=== PATIENT | male | born 1985 | race Caucasian/White ===

== ENCOUNTER 2017-02-20 14:03 | Inpatient (IN) ==
[2017-02-20] MEDS ORDERED: Ondansetron 4 MG/2 ML VIAL IVP PRN (14:26)
[2017-02-20] MEDS ORDERED: 0.9 % Sodium Chloride 1,000 ML IVC SCH (14:30)
[2017-02-20] MEDS ORDERED: 0.9 % Sodium Chloride 1,000 ML IVC ONE ×3 (14:40→15:39)
[2017-02-20] MEDS ORDERED: *HR* Promethazine 25 MG/ML VIAL IVP ONE (14:50)
[2017-02-20 15:09] LABS: Hematocrit 48.5 % (37.5-50.1); Hemoglobin 16.2 g/dL (12.9-16.9); Immature Platelets 1.5 % (1.1-6.1); Mean Corpuscular HGB Conc 33.4 g/dL (31.6-35.5); Mean Corpuscular Hemoglobin 30.5 pg (28.0-33.3); Mean Corpuscular Volume 91.3 fL (83.0-100.0); Mean Platelet Volume 8.3 fL (9.4-12.4); Red Blood Count 5.31 M/mcL (4.19-5.50); Red Cell Distribution Width 12.9 % (11.5-14.5)
[2017-02-20] MEDS ORDERED: Pantoprazole 80 MG in Water for inj. (sterile) 10 ML IVP ONE ×2 (15:38→15:45)
[2017-02-20 15:40] LABS: Alanine Aminotransferase 28 Units/L (0-55); Albumin 4.4 g/dL (3.5-5.0); Albumin/Globulin Ratio 1.2 (1.1-2.2); Alkaline Phosphatase 86 Units/L (38-126); Aspartate Amino Transferase 24 Units/L (5-34); BUN/Creatinine Ratio 15 (6-26); Bilirubin,Total 0.4 mg/dL (0.2-1.2); Blood Urea Nitrogen 17 mg/dL (8-26); Calcium 9.4 mg/dL (8.6-10.8); Carbon Dioxide 23 mEq/L (19-29); Chloride 109 mEq/L (98-109); Globulin 3.6 g/dL (2.4-3.5); Glucose 65 mg/dL (70-99); Osmolality,Calculated 298 (280-300); Potassium 3.9 mEq/L (3.5-4.5); Sodium 144 mEq/L (136-145); eGFR For African Americans > 60 (> 60); eGFR For Non-African Americans > 60 (> 60)
--- NOTE | 2017-02-20 15:41 | Emergency Department Note ---
Disposition Clinical Impression: Prostatitis Qualifiers: Prostatitis type: acute Qualified Code(s): N41.0 - Acute prostatitis Sepsis Qualifiers: Sepsis type: sepsis due to unspecified organism Qualified Code(s): A41.9 - Sepsis, unspecified organism Disposition: Admitted As Inpatient Condition: Fair Time of Disposition: 18:43 Nausea/Vomiting/Diarrhea HPI - General Chief complaint: ED Nausea/Vomiting/Diarrhea Stated complaint: vomiting Time Seen by Provider: 02/20/17 14:10 Source: patient Limitations: no limitations Nursing Notes Reviewed: Yes Vital Signs Reviewed: Yes - History of Present Illness HPI Narrative: 32-year-old male presents with nausea and vomiting past several days. Patient was diagnosed with prostatitis and was placed on ciprofloxacin, omeprazole 5 days ago. Patient states he has not filled his medications yet and his nausea vomiting has been getting worse. Patient was vomiting into a bag was walking to the room. Patient states he has had abdominal pain and back pain. - Related Data Home Medications Medication Instructions Recorded Confirmed No Known Home Drugs 02/20/17 02/20/17 Allergies Allergy/AdvReac Type Severity Reaction Status Date / Time codeine Allergy Itching Verified 02/20/17 17:23 All systems ED: reviewed and negative except as stated. Review of Systems: As Per HPI Past Medical History - Past Medical History Attestation: Yes The following information was validated with the patient. Source: patient Medical history: Reports: no medical history, non-contributory Surgical history: Reports: non-contributory Psychiatric history: Reports: no psych history - Social History Smoking Status: Current some day smoker Smokeless Tobacco Status: Yes Alcohol use: Reports: rarely Drug use: Reports: marijuana Physical Exam Vital Signs Temperature 98.9 F 02/20/17 14:07 Pulse Rate 91 02/20/17 14:07 Respiratory Rate 16 02/20/17 14:07 Blood Pressure 155/81 02/20/17 14:07 O2 Sat by Pulse Oximetry 95 02/20/17 14:07 Temperature 98.9 F 02/20/17 14:07 Pulse Rate 103 02/20/17 15:36 Respiratory Rate 18 02/20/17 15:36 Blood Pressure 154/94 02/20/17 15:36 O2 Sat by Pulse Oximetry 98 02/20/17 15:36 Oxygen Delivery Oxygen Delivery Room Air 32-year-old male who is alert and oriented 3 and in acute distress secondary to his nausea and vomiting. Patient's currently afebrile and nontoxic appearing. Patient has a GCS of 15. Patient has hematemesis in his bucket - General Limitations: no limitations General appearance: anxious - Head Head exam: atraumatic, normocephalic, normal inspection - Eye Eye exam: Present: normal appearance, PERRL, EOMI - ENT ENT exam: normal exam, normal oropharynx, mucous membranes dry - Neck Neck exam: Present: normal inspection, full ROM, trachea midline - Chest Chest inspection: Present: normal inspection, symmetric chest wall rise. Absent : tenderness - Respiratory Respiratory exam: Present: normal lung sounds bilaterally. Absent: respiratory distress, wheezes - Cardiovascular Cardiovascular exam: Present: regular rate, normal rhythm, normal heart sounds - Abdominal Exam Abdominal exam: Present: soft, Non-Tender. Absent: tenderness, distention, guarding, rebound, rigidity - Extremities Exam Extremities exam: Present: normal inspection, full ROM, normal capillary refill , pedal edema (Bilateral lower leg pitting edema 2+). Absent: tenderness - Back Exam Back exam: Present: normal inspection, full ROM, CVA tenderness (R). Absent: tenderness, CVA tenderness (L) - Neurological Exam Neurological exam: Present: alert, oriented X3 - Skin Skin exam: Present: warm, dry, intact, normal color Course - Consultations Consultation #1: Dr. Bhakta the hospitalist as except the patient for admission at 1750 hrs. Time: 17:51 Vital Signs Temperature 98.9 F 02/20/17 14:07 Pulse Rate 91 02/20/17 14:07 Respiratory Rate 16 02/20/17 14:07 Blood Pressure 155/81 02/20/17 14:07 O2 Sat by Pulse Oximetry 95 02/20/17 14:07 Temperature 99 F 02/20/17 18:18 Pulse Rate 103 02/20/17 17:19 Respiratory Rate 18 02/20/17 18:18 Blood Pressure 108/59 02/20/17 18:18 O2 Sat by Pulse Oximetry 95 02/20/17 17:19 Oxygen Delivery Oxygen Delivery Room Air Nausea/Vomiting/Diarrhea - [facility] Narrative Medical decision making narrative: Patient presents today with previous diagnosis of prostatitis and noncompliant on his home medications. Patient has worsening nausea and vomiting complaint. Patient also has right CVA tenderness. Patient may have pyelonephritis. Patient is nontoxic appearing and is afebrile. Currently not meeting any SIRS criteria. Labs ordered. Patient's WBC shows a white count mildly elevated warranting further investigation. Lactic acid ordered cultures ordered CT abdomen and pelvis ordered. Patient was started on antibiotics IV Cipro. As lactic acidemia 5.1 leukocytosis 25.8 for sepsis secondary to worsening prostatitis. Patient accepts decision for admission Dr. Bhakta the hospitalist has accepted the patient for admission at 1750 hrs. - Lab Data Lab results reviewed: Yes I reviewed the patient's lab results. Lab results narrative: Short CBC 02/20/17 Range/Units 15:03 WBC 25.8 H (4.3-11.1) K/mcL Hgb 16.2 (12.9-16.9) g/dL Hct 48.5 (37.5-50.1) % Plt Count 355 (140-400) K/mcL BMP 02/20/17 Range/Units 15:03 Sodium 144 (136-145) mEq/L Potassium 3.9 (3.5-4.5) mEq/L Chloride 109 (98-109) mEq/L Carbon Dioxide 23 (19-29) mEq/L BUN 17 (8-26) mg/dL Creatinine 1.14 (0.72-1.25) mg/dL Glucose 65 L (70-99) mg/dL Calcium 9.4 (8.6-10.8) mg/dL Liver Function 02/20/17 Range/Units 15:03 Total Bilirubin 0.4 (0.2-1.2) mg/dL AST 24 (5-34) Units/L ALT 28 (0-55) Units/L Alkaline Phosphatase 86 (38-126) Units/L Albumin 4.4 (3.5-5.0) g/dL Urine 02/20/17 Range/Units 16:45 Urine Color Yellow (Yellow) Urine Clarity Clear (Clear) Urine pH 6.0 (5.0-8.0) pH Units Ur Specific [place] > 1.030 H (1.010-1.025) Urine Protein 30 H (Neg-Trace) mg/dL Urine Glucose (UA) Normal (Normal) mg/dL Result diagrams: 02/20/17 15:03 02/20/17 15:03 Lab Results 02/20/17 02/20/17 02/20/17 Range/Units 15:03 15:03 16:07 WBC 25.8 H (4.3-11.1) K/mcL RBC 5.31 (4.19-5.50) M/mcL Hgb 16.2 (12.9-16.9) g/dL Hct 48.5 (37.5-50.1) % MCV 91.3 (83.0-100.0) fL MCH 30.5 (28.0-33.3) pg MCHC 33.4 (31.6-35.5) g/dL RDW 12.9 (11.5-14.5) % Plt Count 355 (140-400) K/mcL MPV 8.3 L (9.4-12.4) fL Immature Plt Fraction 1.5 (1.1-6.1) % Sodium 144 (136-145) mEq/L Potassium 3.9 (3.5-4.5) mEq/L Chloride 109 (98-109) mEq/L Carbon Dioxide 23 (19-29) mEq/L BUN 17 (8-26) mg/dL Creatinine 1.14 (0.72-1.25) mg/dL Est GFR ( Amer) > 60 (> 60) Est GFR (Non-Af Amer) > 60 (> 60) BUN/Creatinine Ratio 15 (6-26) Glucose 65 L (70-99) mg/dL Calculated Osmolality 298 (280-300) Lactic Acid 5.1 H* (0.5-2.2) mmol/L Calcium 9.4 (8.6-10.8) mg/dL Total Bilirubin 0.4 (0.2-1.2) mg/dL AST 24 (5-34) Units/L ALT 28 (0-55) Units/L Alkaline Phosphatase 86 (38-126) Units/L Serum Total Protein 8.0 (6.0-8.3) g/dL Albumin 4.4 (3.5-5.0) g/dL Globulin 3.6 H (2.4-3.5) g/dL Albumin/Globulin Ratio 1.2 (1.1-2.2) Lipase (8-78) Units/L Urine Color (Yellow) Urine Clarity (Clear) Urine pH (5.0-8.0) pH Units Ur Specific [place] (1.010-1.025) Urine Protein (Neg-Trace) mg/dL Urine Glucose (UA) (Normal) mg/dL Urine Ketones (Negative) mg/dL Urine Blood (Negative) Urine Nitrite (Negative) Urine Bilirubin (Negative) Urine Urobilinogen (Normal) mg/dL Ur Leukocyte Esterase (Negative) Urine Microscopic RBC (0-3) per hpf Urine Microscopic WBC (0-3) per hpf Ur Squamous Epith Cells (None-Few) per lpf Urine Bacteria (None-Few) per hpf Hyaline Casts (None-Few) per lpf Ur Culture Indicated? (NO) 02/20/17 02/20/17 Range/Units 16:07 16:45 WBC (4.3-11.1) K/mcL RBC (4.19-5.50) M/mcL Hgb (12.9-16.9) g/dL Hct (37.5-50.1) % MCV (83.0-100.0) fL MCH (28.0-33.3) pg MCHC (31.6-35.5) g/dL RDW (11.5-14.5) % Plt Count (140-400) K/mcL MPV (9.4-12.4) fL Immature Plt Fraction (1.1-6.1) % Sodium (136-145) mEq/L Potassium (3.5-4.5) mEq/L Chloride (98-109) mEq/L Carbon Dioxide (19-29) mEq/L BUN (8-26) mg/dL Creatinine (0.72-1.25) mg/dL Est GFR ( Amer) (> 60) Est GFR (Non-Af Amer) (> 60) BUN/Creatinine Ratio (6-26) Glucose (70-99) mg/dL Calculated Osmolality (280-300) Lactic Acid (0.5-2.2) mmol/L Calcium (8.6-10.8) mg/dL Total Bilirubin (0.2-1.2) mg/dL AST (5-34) Units/L ALT (0-55) Units/L Alkaline Phosphatase (38-126) Units/L Serum Total Protein (6.0-8.3) g/dL Albumin (3.5-5.0) g/dL Globulin (2.4-3.5) g/dL Albumin/Globulin Ratio (1.1-2.2) Lipase 21 (8-78) Units/L Urine Color Yellow (Yellow) Urine Clarity Clear (Clear) Urine pH 6.0 (5.0-8.0) pH Units Ur Specific [place] > 1.030 H (1.010-1.025) Urine Protein 30 H (Neg-Trace) mg/dL Urine Glucose (UA) Normal (Normal) mg/dL Urine Ketones 40 H (Negative) mg/dL Urine Blood Negative (Negative) Urine Nitrite Negative (Negative) Urine Bilirubin Negative (Negative) Urine Urobilinogen Normal (Normal) mg/dL Ur Leukocyte Esterase Negative (Negative) Urine Microscopic RBC 0-3 (0-3) per hpf Urine Microscopic WBC 0-3 (0-3) per hpf Ur Squamous Epith Cells Few (None-Few) per lpf Urine Bacteria None Seen (None-Few) per hpf Hyaline Casts None Seen (None-Few) per lpf Ur Culture Indicated? NO (NO) - Radiology Data Radiology results reviewed: Yes I reviewed the patient's radiology results. Chest/Abdomen X-ray 02/20/17 14:52 IMPRESSION: 1. Nonobstructive bowel gas pattern with a minimal to mild stool volume. 2. No acute cardiopulmonary process. D/ / Glen Carmona MD / Glen Carmona MD Interpreting Provider: Glen Carmona MD Abdomen/Pelvis CT 02/20/17 15:42 IMPRESSION: 1. No acute abnormality in the abdomen or pelvis. 2. Diffuse hepatic steatosis. D/ / Guille Armendariz MD / Guille Armendariz MD Interpreting Provider: Guille Armendariz MD Critical Care Time Critical Care Time: Yes Total Critical Care Time: 35 Attestation: Critical care time for this patient was 35 minutes. Attestation Statement - Attestation Attestation: Patient was seen with resident physician. I reviewed the history, physical, assessment and plan, and agree with the findings. I also personally evaluated this patient and had [id number] time with this patient. 32-year-old female was apparently diagnosed with prostatitis yesterday. He was unable to get his medications filled. He returns today with intractable nausea and vomiting. He also has diffuse abdominal discomfort. Denies fevers or chills. On exam vital signs demonstrate that he is afebrile with a slightly elevated heart rate. ENT is unremarkable. Heart regular rhythm and rate. Lungs clear. Abdomen soft and diffusely tender especially in the mid to lower abdomen. There is no guarding or rigidity. Extremities unremarkable. Neurologically intact. ED course I saw the patient after he had 8 mg of Zofran he continued to have vomiting. He is ordered Phenergan. He was having a mild amount of hematemesis as well which likely is a result of continuous emesis for the last day or so. He had a markedly elevated white blood cell count, so septic workup was started. IV fluids and antibiotics were started we will likely admit the patient to the hospitalist service for further evaluation and treatment as indicated. Agree with the resident physician assessment and plan.
[2017-02-20 16:56] LABS: Bilirubin,Urine Negative (Negative); Blood,Urine Negative (Negative); Clarity,Urine Clear (Clear); Color,Urine Yellow (Yellow); Glucose,Urine (UA) Normal (Normal); Ketones,Urine 40 mg/dL (Negative); Leukocyte Esterase,Urine Negative (Negative); Nitrite,Urine Negative (Negative); Protein,Urine 30 mg/dL (Neg-Trace); Specific Gravity,Urine > 1.030 (1.010-1.025); Urobilinogen,Urine Normal (Normal)
[2017-02-20 17:00] LABS: Bacteria,Urine None Seen per hpf (None-Few); Hyaline Casts,Urine None Seen per lpf (None-Few); RBC,Urine 0-3 per hpf (0-3); Squamous Epithelial Cell,Urine Few per lpf (None-Few); WBC,Urine 0-3 per hpf (0-3)
[2017-02-20] MEDS ORDERED: Naloxone 0.4 MG/ML INJ IVP PRN (20:06)
[2017-02-20] MEDS ORDERED: Acetaminophen 325 MG TABLET PO PRN (20:06)
--- NOTE | 2017-02-20 20:14 | Internal Med History&Physical ---
Date of Encounter: 02/20/17 Time of Encounter: 20:12 Assessment and Plan (1) Sepsis Current visit: Yes Status: Acute IVF, trend lactate IV cipro blood cx pend recheck GC DNA Qualifiers: Sepsis type: sepsis due to unspecified organism Qualified Code(s): A41.9 - Sepsis, unspecified organism (2) Prostatitis Current visit: Yes Status: Acute possible etiology for sepsis management per above further management pending hospital course Qualifiers: Prostatitis type: acute Qualified Code(s): N41.0 - Acute prostatitis Internal Medicine - H&P: HPI Chief complaint: Low energy, LUTS, emesis/nausea History of present illness: Mr. Polo is a 32 year old male who presents with Low energy, LUTS, emesis/ nausea. Found to be in sepsis state from possible prostatitis HE presents with 2 weeks hx of non-specific Low energy, LUTS, emesis/nausea. Symptoms have been getting worse. He felt like he was "dying". Symptoms associated with LUTs with incomplete bladder emptying and frequency symptoms. Also has chills Sexual hx not taken as his GF was in the room. CT/CT abd pelvis w iv no oral IMPRESSION: 1. No acute abnormality in the abdomen or pelvis. 2. Diffuse hepatic steatosis. Past Med Surg Social Fam HX - Past Medical History Medical history: no medical history, non-contributory Psychiatric history: no psych history - Past Surgical History Surgical History: non-contributory - Social History Smoking Status: Current some day smoker Smokeless Tobacco Status: Yes Alcohol use: rarely Drug use: marijuana Internal Medicine - H&P: Meds Omeprazole [PriLOSEC] PO DAILY 02/20/17 [History] 3 Allergy/AdvReac Type Severity Reaction Status Date / Time codeine Allergy Itching Verified 02/20/17 17:23 All Systems PM: A 10-system review of systems was performed and is negative for pertinent findings except as documented above in the HPI. Review of systems: ROS 14 point review of systems reviewed as best as possible given presentation. Pertinent positive or negative as per HPI or otherwise reviewed as negative - Constitutional Vitals: Temp Pulse Resp BP Pulse Ox 99 F 103 18 108/59 95 02/20/17 18:18 02/20/17 17:19 02/20/17 18:18 02/20/17 18:18 02/20/17 17:19 Exam: General - AAO x 3 Psych - Appropriate affect/speech. No agitation Heart - Sinus. RRR. S1 and S2 present. No added HS/murmurs appreciated. No elevated JVD appreciated. Lung - Adequate air entry b/l, No crackles/wheezes appreciated GI - RUQ discomfort. Soft, non-tender. No hepatosplenomegaly/ascites. BS+ - No CVA/suprapubic tenderness or palpable bladder distension Skin - Intact. No rash/petechiae/ecchymosis. Warm extremities MSK - Joints with normal ROM. No joint swellings Internal Med - H&P Results - Labs CBC & Chem 7: 02/20/17 15:03 02/20/17 15:03
[2017-02-20] MEDS: Ringers Solution, Lactated 1,000 ML IVC SCH (21:24)
[2017-02-21] MEDS: Ringers Solution, Lactated 1,000 ML IVC SCH (03:57)
[2017-02-21] MEDS: Ondansetron 4 MG/2 ML VIAL IVP PRN ×2 (04:02→12:50)
[2017-02-21 05:31] LABS: Basophils # 0.1 K/mcL (0.0-0.2); Basophils % 0.7 %; Eosinophils # 0.1 K/mcL (0.0-0.6); Eosinophils % 0.8 %; Hematocrit 38.6 % (37.5-50.1); Immature Granulocytes % 0.3 % (0-4); Lymphocytes # 3.5 K/mcL (0.6-4.6); Lymphocytes % 28.3 %; Mean Corpuscular HGB Conc 33.7 g/dL (31.6-35.5); Mean Corpuscular Hemoglobin 30.4 pg (28.0-33.3); Mean Corpuscular Volume 90.2 fL (83.0-100.0); Mean Platelet Volume 8.2 fL (9.4-12.4); Monocytes # 1.3 K/mcL (0.0-1.3); Monocytes % 10.3 %; Neutrophils # 7.3 K/mcL (1.6-8.9); Platelet Count 239 K/mcL (140-400); Red Blood Count 4.28 M/mcL (4.19-5.50); Red Cell Distribution Width 12.9 % (11.5-14.5); Segmented Neutrophils % 59.6 %
[2017-02-21 05:49] LABS: Alanine Aminotransferase 21 Units/L (0-55); Alkaline Phosphatase 56 Units/L (38-126); Aspartate Amino Transferase 18 Units/L (5-34); BUN/Creatinine Ratio 15 (6-26); Bilirubin,Direct 0.2 mg/dL (0.0-0.5); Bilirubin,Indirect 0.3 mg/dL (0.0-1.2); Bilirubin,Total 0.5 mg/dL (0.2-1.2); Blood Urea Nitrogen 15 mg/dL (8-26); Calcium 8.1 mg/dL (8.6-10.8); Chloride 109 mEq/L (98-109); Globulin 2.9 g/dL (2.4-3.5); Glucose 112 mg/dL (70-99); Osmolality,Calculated 286 (280-300); Potassium 3.9 mEq/L (3.5-4.5); Sodium 137 mEq/L (136-145); eGFR For African Americans > 60 (> 60); eGFR For Non-African Americans > 60 (> 60)
[2017-02-21 06:01] LABS: Total Protein 5.9 g/dL (6.0-8.3)
[2017-02-21] MEDS: *HR* Enoxaparin 40 MG/0.4 ML SYRINGE SQ SCH (06:03)
[2017-02-21 06:18] LABS: Carbon Dioxide 24 mEq/L (19-29)
--- NOTE | 2017-02-21 08:53 | Internal Med Progress Note ---
Date of Encounter: 02/21/17 Time of Encounter: 08:50 - Assessment and plan (1) Nausea and vomiting Current Visit: Yes Status: Acute Assessment and plan: likely secondary to infection. Continue PRN antiemetics and supportive care, IV antibiotics. IV hydration. Qualifiers: Vomiting type: unspecified Vomiting Intractability: non-intractable Qualified Code(s): R11.2 - Nausea with vomiting, unspecified (2) Prostatitis Current Visit: Yes Status: Acute Assessment and plan: CT abdomen showed no prostate abnormality. Will check Prostate U/S and consult Urology if needed. Improving leukocytosis and lactic acidosis but persistent symptoms. Continue IV Ciprofloxacin and f/up blood cultures. Send urine Gonococcal and Chlamydia Ag; Qualifiers: Prostatitis type: acute Qualified Code(s): N41.0 - Acute prostatitis (3) Sepsis Current Visit: Yes Status: Acute Assessment and plan: presented with leykocytosis, tachycardia and lactic acidosis; improved. Continue antibiotics and f/up cultures. Qualifiers: Sepsis type: sepsis due to unspecified organism Qualified Code(s): A41.9 - Sepsis, unspecified organism - Subjective Interval history: Reports having nausea and persistent lower abdominal pain; no vomiting; no fever /chills, shortness of breath. Improved urinary frequency, dysuria; no h/o- UTIs/ STDs in the past. - Constitutional Vitals: Temp Pulse Resp BP Pulse Ox 98.3 F 80 18 125/65 97 02/21/17 08:20 02/21/17 08:20 02/21/17 08:20 02/21/17 08:20 02/21/17 08:20 General appearance: Present: mild distress, A&O X 3, answers questions appropriately - Respiratory Respiratory exam: Present: CTAB. Absent: accessory muscle use, rales, rhonchi, wheezes - Cardiovascular Cardiovascular exam: Present: RRR, +S1, +S2. Absent: diastolic murmur, gallop, rubs, systolic murmur - GI/Abdominal GI/Abdominal exam: Present: normal bowel sounds, soft (tenderness in lower abdomen), no peritoneal signs. Absent: distended, tenderness - Extremities Exam Extremities exam: Present: full ROM, warm, radial pulses palpable and symmetrical. Absent: calf tenderness, cyanotic, pedal edema - Neurological Exam Neurological exam: Present: CN II-XII intact, oriented X3, no focal deficits. Absent: pronater drift, facial droop, speech deficit Internal Medicine: Result - Labs CBC & Chem 7: 02/21/17 05:23 02/21/17 05:23 Labs: Short CBC 02/21/17 Range/Units 05:23 WBC 12.3 H D (4.3-11.1) K/mcL Hgb 13.0 D (12.9-16.9) g/dL Hct 38.6 (37.5-50.1) % Plt Count 239 (140-400) K/mcL Neutrophils # 7.3 (1.6-8.9) K/mcL BMP 02/21/17 05:23 Sodium 137 Potassium 3.9 Chloride 109 Carbon Dioxide 24 BUN 15 Creatinine 1.00 Glucose 112 H Calcium 8.1 L Liver Function 02/21/17 Range/Units 05:23 Total Bilirubin 0.5 (0.2-1.2) mg/dL Direct Bilirubin 0.2 (0.0-0.5) mg/dL AST 18 (5-34) Units/L ALT 21 (0-55) Units/L Alkaline Phosphatase 56 (38-126) Units/L Albumin 3.0 L D (3.5-5.0) g/dL Consult Discharge Plan - Plan Referrals: NONE,PCP [Primary Care Provider] -
[2017-02-21] MEDS: *HR* OxyCODONE Immed Rel 5 MG TABLET PO PRN ×3 (09:19→22:04)
[2017-02-21] MEDS: *HR* Promethazine 25 MG/ML VIAL IVP PRN (20:19)
[2017-02-21] MEDS: *HR* HYDROmorphone (PF) 1 MG/ML SYRINGE IVP PRN (23:12)
[2017-02-22 03:11] LABS: Basophils # 0.1 K/mcL (0.0-0.2); Basophils % 1.3 %; Eosinophils # 0.2 K/mcL (0.0-0.6); Eosinophils % 2.2 %; Hematocrit 40.1 % (37.5-50.1); Hemoglobin 13.5 g/dL (12.9-16.9); Immature Granulocytes % 0.4 % (0-4); Lymphocytes # 3.3 K/mcL (0.6-4.6); Lymphocytes % 35.8 %; Mean Corpuscular HGB Conc 33.7 g/dL (31.6-35.5); Mean Corpuscular Hemoglobin 30.8 pg (28.0-33.3); Mean Corpuscular Volume 91.6 fL (83.0-100.0); Mean Platelet Volume 8.5 fL (9.4-12.4); Monocytes # 0.9 K/mcL (0.0-1.3); Monocytes % 9.8 %; Neutrophils # 4.6 K/mcL (1.6-8.9); Platelet Count 211 K/mcL (140-400); Red Blood Count 4.38 M/mcL (4.19-5.50); Segmented Neutrophils % 50.5 %
[2017-02-22 03:28] LABS: Alanine Aminotransferase 29 Units/L (0-55); Albumin/Globulin Ratio 0.9 (1.1-2.2); Alkaline Phosphatase 57 Units/L (38-126); Aspartate Amino Transferase 24 Units/L (5-34); BUN/Creatinine Ratio 9 (6-26); Bilirubin,Direct 0.1 mg/dL (0.0-0.5); Bilirubin,Indirect 0.2 mg/dL (0.0-1.2); Bilirubin,Total 0.3 mg/dL (0.2-1.2); Blood Urea Nitrogen 10 mg/dL (8-26); Calcium 8.8 mg/dL (8.6-10.8); Carbon Dioxide 26 mEq/L (19-29); Chloride 104 mEq/L (98-109); Globulin 3.2 g/dL (2.4-3.5); Glucose 109 mg/dL (70-99); Osmolality,Calculated 288 (280-300); Potassium 3.7 mEq/L (3.5-4.5); Sodium 139 mEq/L (136-145); Total Protein 6.2 g/dL (6.0-8.3); eGFR For African Americans > 60 (> 60); eGFR For Non-African Americans > 60 (> 60)
[2017-02-22] MEDS: *HR* Promethazine 25 MG/ML VIAL IVP PRN (04:36)
[2017-02-22] MEDS: *HR* HYDROmorphone (PF) 1 MG/ML SYRINGE IVP PRN ×4 (04:38→21:12)
[2017-02-22] MEDS: *HR* Enoxaparin 40 MG/0.4 ML SYRINGE SQ SCH (04:44)
[2017-02-22] MEDS: *HR* OxyCODONE Immed Rel 5 MG TABLET PO PRN ×2 (12:02→18:22)
--- NOTE | 2017-02-22 15:39 | Internal Med Progress Note ---
Date of Encounter: 02/22/17 Time of Encounter: 09:00 - Assessment and plan (1) Nausea and vomiting Current Visit: Yes Status: Resolved Assessment and plan: likely secondary to infection. improved. Qualifiers: Vomiting type: unspecified Vomiting Intractability: non-intractable Qualified Code(s): R11.2 - Nausea with vomiting, unspecified (2) Prostatitis Current Visit: Yes Status: Acute Assessment and plan: Improved labs. CT abdomen showed no prostate abnormality. Bladder/Prostate U/S pending, unclear diagnosis at this time; consult Urology if needed, based on ultrasound results. Continue IV Ciprofloxacin and blood cultures remain negative. urine Gonococcal and Chlamydia Ag negative. Continue pain control with PRN Percocet and Toradol. Qualifiers: Prostatitis type: acute Qualified Code(s): N41.0 - Acute prostatitis (3) Sepsis Current Visit: Yes Status: Resolved Assessment and plan: presented with leykocytosis, tachycardia and lactic acidosis; improved. Continue antibiotics and f/up cultures. Qualifiers: Sepsis type: sepsis due to unspecified organism Qualified Code(s): A41.9 - Sepsis, unspecified organism - Subjective Interval history: Continues to report lower abdominal pain; improved urinary symptoms and nausea; does not feel he can go home with this pain; pending bladder U/S; - Constitutional Vitals: Temp Pulse Resp BP Pulse Ox 98.1 F 58 18 114/62 96 02/22/17 11:31 02/22/17 11:31 02/22/17 11:31 02/22/17 11:31 02/22/17 11:31 General appearance: Present: A&O X 3, answers questions appropriately - Respiratory Respiratory exam: Present: CTAB. Absent: accessory muscle use, rales, rhonchi, wheezes - Cardiovascular Cardiovascular exam: Present: RRR, +S1, +S2. Absent: diastolic murmur, gallop, rubs, systolic murmur - GI/Abdominal GI/Abdominal exam: Present: normal bowel sounds, soft, no peritoneal signs. Absent: distended, tenderness - Extremities Exam Extremities exam: Present: full ROM, warm, radial pulses palpable and symmetrical. Absent: calf tenderness, cyanotic, pedal edema - Neurological Exam Neurological exam: Present: CN II-XII intact, oriented X3, no focal deficits. Absent: pronater drift, facial droop, speech deficit Internal Medicine: Result - Labs CBC & Chem 7: 02/22/17 03:01 02/22/17 03:01 Labs: Short CBC 02/22/17 Range/Units 03:01 WBC 9.1 (4.3-11.1) K/mcL Hgb 13.5 (12.9-16.9) g/dL Hct 40.1 (37.5-50.1) % Plt Count 211 (140-400) K/mcL Neutrophils # 4.6 (1.6-8.9) K/mcL BMP 02/22/17 03:01 Sodium 139 Potassium 3.7 Chloride 104 Carbon Dioxide 26 BUN 10 Creatinine 1.12 Glucose 109 H Calcium 8.8 Liver Function 02/22/17 Range/Units 03:01 Total Bilirubin 0.3 (0.2-1.2) mg/dL Direct Bilirubin 0.1 (0.0-0.5) mg/dL AST 24 (5-34) Units/L ALT 29 (0-55) Units/L Alkaline Phosphatase 57 (38-126) Units/L Albumin 3.0 L (3.5-5.0) g/dL Consult Discharge Plan - Plan Referrals: counselingju [Other] - 03/16/17 10:00 am NONE,PCP [Primary Care Provider] -
[2017-02-23] MEDS: *HR* OxyCODONE Immed Rel 5 MG TABLET PO PRN ×4 (01:16→22:06)
[2017-02-23] MEDS: *HR* HYDROmorphone (PF) 1 MG/ML SYRINGE IVP PRN ×5 (03:37→22:43)
[2017-02-23 06:05] LABS: Basophils # 0.1 K/mcL (0.0-0.2); Basophils % 1.4 %; Eosinophils # 0.3 K/mcL (0.0-0.6); Eosinophils % 3.1 %; Hematocrit 42.3 % (37.5-50.1); Hemoglobin 14.3 g/dL (12.9-16.9); Immature Granulocytes % 0.4 % (0-4); Lymphocytes # 2.8 K/mcL (0.6-4.6); Lymphocytes % 32.9 %; Mean Corpuscular HGB Conc 33.8 g/dL (31.6-35.5); Mean Corpuscular Hemoglobin 30.8 pg (28.0-33.3); Mean Corpuscular Volume 91.2 fL (83.0-100.0); Mean Platelet Volume 8.7 fL (9.4-12.4); Monocytes # 0.8 K/mcL (0.0-1.3); Monocytes % 9.6 %; Neutrophils # 4.4 K/mcL (1.6-8.9); Platelet Count 234 K/mcL (140-400); Red Blood Count 4.64 M/mcL (4.19-5.50); Red Cell Distribution Width 12.8 % (11.5-14.5); Segmented Neutrophils % 52.6 %
[2017-02-23 06:20] LABS: Alanine Aminotransferase 43 Units/L (0-55); Albumin 3.3 g/dL (3.5-5.0); Alkaline Phosphatase 68 Units/L (38-126); Aspartate Amino Transferase 34 Units/L (5-34); BUN/Creatinine Ratio 13 (6-26); Bilirubin,Indirect 0.1 mg/dL (0.0-1.2); Bilirubin,Total 0.2 mg/dL (0.2-1.2); Blood Urea Nitrogen 12 mg/dL (8-26); Calcium 9.2 mg/dL (8.6-10.8); Carbon Dioxide 28 mEq/L (19-29); Chloride 103 mEq/L (98-109); Globulin 3.3 g/dL (2.4-3.5); Glucose 108 mg/dL (70-99); Osmolality,Calculated 288 (280-300); Potassium 4.1 mEq/L (3.5-4.5); Sodium 139 mEq/L (136-145); Total Protein 6.6 g/dL (6.0-8.3); eGFR For African Americans > 60 (> 60); eGFR For Non-African Americans > 60 (> 60)
[2017-02-23 06:21] LABS: Bilirubin,Direct < 0.1 mg/dL (0.0-0.5)
[2017-02-23] MEDS: *HR* Enoxaparin 40 MG/0.4 ML SYRINGE SQ SCH (06:26)
--- NOTE | 2017-02-23 13:02 | Internal Med Progress Note ---
<Dawood Tillman - Last Filed: 02/23/17 13:28> Date of Encounter: 02/23/17 Time of Encounter: 08:00 - Assessment and plan (1) Prostatitis Current Visit: Yes Status: Acute Assessment and plan: Patient was diagnosed with prostatitis in ED during previous visit. On rectal exam in the ED, patient had an enlarged prostate with tenderness. Abdominal pelvic CT showed no prostatic abnormalities. Serology was performed for chlamydia and gonorrhea. Results on 02/21/17: Not detected. Bladder ultrasound was performed on 03/07: Demonstrated no significant postvoid residual. PSA has been ordered. WC: 8.4 Plan: Pain control as follows: -Acetaminophen 650 PO every 6 hours PRN (mild) -Roxicodone 5 mg PO every 6 hours PRN (moderate) -Dilaudid 0.5 mg IV every 4 hours PRN (severe) -Possible urology consult -Ciprofloxacin 400 mg IV Q12 started on 02/20/17; day 4 of antibiotics. Qualifiers: Prostatitis type: acute Qualified Code(s): N41.0 - Acute prostatitis (2) GI bleed Current Visit: Yes Status: Acute Assessment and plan: Patient reports having a bowel movement last night tinged with blood. Also had 2 episodes of vomiting in which he observed streaks of blood. Diffuse abdominal pain present on physical exam. Hb this morning was 14.3 Plan: -Continue to monitor patient's hemoglobin levels. -GI has been consulted for evaluation of possible GI bleed. Qualifiers: Qualified Code(s): K92.2 - Gastrointestinal hemorrhage, unspecified (3) Nausea & vomiting Current Visit: Yes Status: Acute Assessment and plan: Patient reported feeling very nauseous this morning. Had 2 episodes of vomiting last night. Plan: -Zofran 4mgIV Q8 PRN. -Phenergan 12.5 mg PO Q6 PRN. -GI has been consulted for further evaluation. Qualifiers: Qualified Code(s): R11.2 - Nausea with vomiting, unspecified (4) Sepsis Current Visit: Yes Status: Resolved Assessment and plan: Patient met septic criteria on admission: -Elevated lactic acid at 5.1, leukocytosis at 25.8. Tachycardia at 103 bpm, known source of infection. -Since admission, patient's white count has decreased from 25.8 June 23. -Blood cultures have been negative. -Sepsis has resolved. Qualifiers: Sepsis type: sepsis due to unspecified organism Qualified Code(s): A41.9 - Sepsis, unspecified organism - Subjective Interval history: Patient is a 32-year-old male who presented initially to the hospital on with a chief complaint of abdominal pain. He also had decreased appetite, fatigue, nausea, and vomiting. He also had bleeding per rectum and loly-rectal pain. He complained of an unintentional 30 pound weight loss. At this visit, he had an elevated white count of 12.1. Imaging studies were negative. Remainder of his workup was negative. He was sent home on antibiotics and was told to follow-up in the outpatient setting. He presented again on 02/15/17. He had similar complaints. Physical exam at this time demonstrated an enlarged prostate with some tenderness. He was given ciprofloxacin 10 days. After this discharge, he presented again on 02/20/17 with nausea and vomiting of several days' duration. Patient reported that he did not fill his previous prescription of ciprofloxacin. Patient notes that there was some blood present in the bucket that he was vomiting into. Upon presentation to the hospital, patient met septic criteria. He had an elevated lactic acid of 5.1, leukocytosis of 25.8, tachycardia at 103, and a known source of infection with the previous diagnosis of prostatitis. Patient also had some right CVA tenderness. Initial concerns were that of pyelonephritis. Patient was started on IV ciprofloxacin. Patient's urinalysis was performed, and it was negative for blood, white blood cells, and urine bacteria. No culture was indicated. Chest x-ray showed no acute process. Abdominal and pelvic CT scan was performed. It demonstrated no acute abnormality in the abdomen or pelvis; diffuse hepatic steatosis. Blood cultures were ordered, which were negative. Urine gonococcal and chlamydial antigens were ordered, which were also negative. Bladder ultrasound was performed on 02/22/17. It demonstrated no significant postvoid residual. Since patient's admission, his white count has been trending down. Initial white count was 25.8. This morning, his white count has decreased 8.4. Lactic acid has decreased to 1.0. Chlamydia and gonorrhea serology was performed. DNA not detected. Patient was seen and examined at bedside this morning. Patient states that he is still feeling diffuse abdominal pain and nausea. Patient admits to having 2 episodes of vomiting last night, and he noticed some blood present in his vomit. He had 1 bowel movement yesterday, which also had blood in it. He complains of diffuse abdominal pain, reproducible by palpation. Pain is most severe in the RLQ. He says that he did not have any vomiting this morning. He is not currently complaining of rectal pain at this time. He denies fever, chills, hematuria, or dysuria. - Constitutional Vitals: Temp Pulse Resp BP Pulse Ox 98.3 F 59 17 114/74 98 02/23/17 12:07 02/23/17 12:07 02/23/17 12:07 02/23/17 12:07 02/23/17 12:07 General appearance: Present: mild distress, A&O X 3, answers questions appropriately - Head Head exam: Present: atraumatic, normocephalic - Eye Eye exam: Present: PERRL, conjuntiva pink, sclera anicteric Pupils: Present: PERRL - Neck Neck exam general surgery: Present: supple, trachea midline. Absent: lymphadenopathy - Respiratory Respiratory exam: Present: CTAB. Absent: accessory muscle use, rales, rhonchi, wheezes - Cardiovascular Cardiovascular exam: Present: RRR, +S1, +S2. Absent: diastolic murmur, gallop, rubs, systolic murmur - GI/Abdominal GI/Abdominal exam: Present: hyperactive bowel sounds, tenderness. Absent: distended Additional comments: Patient has diffuse abdominal pain. Exacerbated by palpation in the RLQ. - Extremities Exam Extremities exam: Present: warm, radial pulses palpable and symmetrical. Absent : calf tenderness, cyanotic, pedal edema - Skin Skin exam: Present: dry, intact Internal Medicine: Result - Labs CBC & Chem 7: 02/23/17 05:54 02/23/17 05:54 Labs: Short CBC 02/23/17 Range/Units 05:54 WBC 8.4 (4.3-11.1) K/mcL Hgb 14.3 (12.9-16.9) g/dL Hct 42.3 (37.5-50.1) % Plt Count 234 (140-400) K/mcL Neutrophils # 4.4 (1.6-8.9) K/mcL BMP 02/23/17 05:54 Sodium 139 Potassium 4.1 Chloride 103 Carbon Dioxide 28 BUN 12 Creatinine 0.93 Glucose 108 H Calcium 9.2 Liver Function 02/23/17 Range/Units 05:54 Total Bilirubin 0.2 (0.2-1.2) mg/dL Direct Bilirubin < 0.1 (0.0-0.5) mg/dL AST 34 (5-34) Units/L ALT 43 (0-55) Units/L Alkaline Phosphatase 68 (38-126) Units/L Albumin 3.3 L (3.5-5.0) g/dL - Impressions Impressions Bladder Ultrasound 02/22/17 15:00 IMPRESSION: No significant postvoid residual. D/ / Harvey Restrepo MD / Harvey Restrepo MD Interpreting Provider: Harvey Restrepo MD Consult Discharge Plan - Plan Referrals: ju elliott [Other] - 03/16/17 10:00 am NONE,PCP [Primary Care Provider] - <David Snyder - Last Filed: 02/23/17 18:45> Date of Encounter: 02/23/17 - Constitutional Vitals: Temp Pulse Resp BP Pulse Ox 98.1 F 84 16 173/79 94 02/23/17 16:51 02/23/17 16:51 02/23/17 16:51 02/23/17 16:51 02/23/17 16:51 Internal Medicine: Result - Labs CBC & Chem 7: 02/23/17 05:54 02/23/17 05:54 Labs: Short CBC 02/23/17 Range/Units 05:54 WBC 8.4 (4.3-11.1) K/mcL Hgb 14.3 (12.9-16.9) g/dL Hct 42.3 (37.5-50.1) % Plt Count 234 (140-400) K/mcL Neutrophils # 4.4 (1.6-8.9) K/mcL BMP 02/23/17 05:54 Sodium 139 Potassium 4.1 Chloride 103 Carbon Dioxide 28 BUN 12 Creatinine 0.93 Glucose 108 H Calcium 9.2 Liver Function 02/23/17 Range/Units 05:54 Total Bilirubin 0.2 (0.2-1.2) mg/dL Direct Bilirubin < 0.1 (0.0-0.5) mg/dL AST 34 (5-34) Units/L ALT 43 (0-55) Units/L Alkaline Phosphatase 68 (38-126) Units/L Albumin 3.3 L (3.5-5.0) g/dL - Attending Attestation I conducted a face to face diagnostic evaluation of this patient and my medical decision-making was reviewed with the Resident Physician, Dr. Dawood Tillman. I agree with the documented findings, disposition and treatment plan as described except to the extent set forth below: Patient reports abdominal pain described as cramping. On my examination his abdomen is soft, nontender. Patient reports rectal bleeding and worsening abdominal pain. I am concerned of problems versus inflammatory bowel disease. We will consult GI.
--- NOTE | 2017-02-23 14:24 | Gastroenterology Consult Note ---
<Tc Wood - Last Filed: 02/23/17 14:17> Date of Encounter: 02/23/17 Time of Encounter: 14:17 - Assessment and plan (1) GI bleed Current Visit: Yes Status: Acute Assessment and plan: Patient reports both hematemesis, hematochezia. Hemoglobin was 16 on admission and currently is 14.3. There has been no noted bleeding since admission. Reports history of gastric ulcer 10 years ago. Reports history of alcohol abuse. reports fatigue Plan: PPI once daiy EGD and colonoscopy tomorrow clear liquid diet Qualifiers: GI bleed type/associated pathology: unspecified gastrointestinal hemorrhage type Qualified Code(s): K92.2 - Gastrointestinal hemorrhage, unspecified (2) Prostatitis Current Visit: Yes Status: Suspected Assessment and plan: treated with antibiotics as per primary Qualifiers: Prostatitis type: acute Qualified Code(s): N41.0 - Acute prostatitis (3) Nausea & vomiting Current Visit: Yes Status: Resolved Assessment and plan: Currently patient is tolerating his regular diet. Denies nausea/vomiting. Undergo EGD tomorrow. Qualifiers: Qualified Code(s): R11.2 - Nausea with vomiting, unspecified (4) Hepatic steatosis Current Visit: Yes Status: Acute Assessment and plan: seen on CT abdomen/pelvis reports hx of alcohol abuse BMI 25.8 does not have hx of diabetes or hyperlipidemia hepatic enzymes WNL likely 2nd to hx of alcohol abuse patient states he drinks once a month. (5) Weight loss Current Visit: Yes Status: Acute Assessment and plan: reports 30 pounds weight loss unintentional. Unclear etiology we will do the EGD, colonoscopy tomorrow. - Time Spent With Patient Total time spent is greater than 50% in coordination of care (as documented) at patient's floor/unit and/or counseling patient: GI History of Present Illness - Data of Consult Patient: new to practice Consult date: 02/23/17 Requesting Physician: David Snyder MD - Consult Narrative Reason for consult: Gi bleed History of present illness: Mr. Polo is a 32 year old male presented to the hospital with complaint of rectal pain which started 3 weeks ago. Patient reports the pain as sharp, intermittent worsened with bowel movements. Reports bright red blood per rectum as well as burning. Denies anal sex. States he has lost 30 pounds in the past 6 months which has been unintentional. Patient had presented with this complaint to the ER multiple times. Previously he was given ciprofloxacin due to findings of an enlarged prostate on rectal examination and diagnosis of prostatitis. Patient states that he did not fill ciprofloxacin. Patient also reports one week after the rectal pain he started having nausea including vomiting which has progressively become worse. He reports his symptoms do not improve or worsen with food. Patient also states his epigastric and right lower quadrant abdominal pain. He denies any recent travel. He reports cornelio blood and has vomited. There has been no noted hematemesis, hematochezia since patient has been admitted. CT abdomen and pelvis was positive for hepatic steatosis. Patient reports history of alcohol abuse. He used to drink (10 years ago) 12 beers a day and a fifth of whiskey. Reports currently he only drinks once a month. He smokes one to 2 packs of cigarettes every week or 2. He denies any IV drug use. Reports both grandparents had pancreatic cancer. Denies family history of colon cancer. Patient works at a [employer] track. Patient also reports having EGD 10 years ago with findings of ulcers in the stomach. He denies NSAID use. Patient is on omeprazole at home. Patient had any abdominal surgeries. Upon admission patient's lactic acid was 5.1. He had a leukocytosis of 25.8. His transaminases, bilirubin, platelets, and albumin were within normal limits. Urinalysis does not show any signs of infection. Gonorrhea Chlamydia PCR was negative. Denies history of STDs. Past Med Surg Social Fam HX - Past Medical History Medical history: no medical history, non-contributory Psychiatric history: no psych history - Past Surgical History Surgical History: non-contributory - Social History Smoking Status: Current some day smoker Smokeless Tobacco Status: Yes Alcohol use: rarely Drug use: marijuana Review of Systems: Constitutional: Denies fever, chills HEENT: Denies headache, vision changes, neck pain, sore throat, rhinorrhea Heart: Denies chest pain palpitations Lungs: Denies shortness of breath cough Abdomen: Reports abdominal pain, nausea, vomiting, hematemesis, hematochezia. Reports rectal pain. Back: Denies back pain Kidney: Denies dysuria, hematuria Skin: warm and dry Extremities: Denies swelling, pain Neuro: Denies numbness, and tingling - Constitutional Vitals: Temp Pulse Resp BP Pulse Ox 98.3 F 59 17 114/74 98 02/23/17 12:07 02/23/17 12:07 02/23/17 12:07 02/23/17 12:07 02/23/17 12:07 - Other Additional findings: General: Pleasant without distress HEENT: Head atraumatic, normocephalic, EOMI, PERRL, neck nontender to palpation , absent lymphadenopathy, Moist Mucous Membranes, scleral anicteric. Heart: Regular rate and rhythm with no murmur Lungs: Clear to auscultation bilaterally Abdomen: Soft, tenderness to epigastric region, normal bowel sounds. Skin: warm and dry Extremities: Absent pedal edema, Neuro: Cranial nerves II through XII intact, UE and LE sensation equal bilaterally, UE and LEstrength 5/5, alert oriented 3, Vascular: Pedal and radial pulses 2 out of 4 Results - Labs CBC & Chem 7: 02/23/17 05:54 02/23/17 05:54 Labs: Last Result Calcium 9.2 mg/dL (8.6-10.8) 02/23/17 05:54 Entire Visit Hgb 14.3 g/dL (12.9-16.9) 02/23/17 05:54 Hct 42.3 % (37.5-50.1) 02/23/17 05:54 Total Bilirubin 0.2 mg/dL (0.2-1.2) 02/23/17 05:54 AST 34 Units/L (5-34) 02/23/17 05:54 ALT 43 Units/L (0-55) 02/23/17 05:54 Lipase 21 Units/L (8-78) 02/20/17 16:07 - Impressions Impressions Bladder Ultrasound 02/22/17 15:00 IMPRESSION: No significant postvoid residual. D/ / Harvey Restrepo MD / Harvey Restrepo MD Interpreting Provider: Harvey Restrepo MD Consult Discharge Plan - Plan Referrals: marija elliotta [Other] - 03/16/17 10:00 am NONE,PCP [Primary Care Provider] - <Rob Zapata - Last Filed: 02/25/17 07:01> Date of Encounter: 02/23/17 - Time Spent With Patient Total time spent is greater than 50% in coordination of care (as documented) at patient's floor/unit and/or counseling patient: GI History of Present Illness - Data of Consult Requesting Physician: David Snyder MD - Consult Narrative History of present illness: Mr. Polo is a 32 year old male - Constitutional Vitals: Temp Pulse Resp BP Pulse Ox 97.6 F 58 18 109/65 94 02/25/17 04:19 02/25/17 04:19 02/25/17 04:19 02/25/17 04:19 02/25/17 04:19 Results - Labs CBC & Chem 7: 02/25/17 05:35 02/25/17 05:35 Labs: Last Result Calcium 9.2 mg/dL (8.6-10.8) 02/25/17 05:35 Entire Visit Hgb 14.7 g/dL (12.9-16.9) 02/25/17 05:35 Hct 41.8 % (37.5-50.1) 02/25/17 05:35 Total Bilirubin 0.2 mg/dL (0.2-1.2) 02/23/17 05:54 AST 34 Units/L (5-34) 02/23/17 05:54 ALT 43 Units/L (0-55) 02/23/17 05:54 Lipase 21 Units/L (8-78) 02/20/17 16:07 - Attending Attestation I examined this patient and my medical decision-making was reviewed with the Resident Physician. I agree with the documented findings, disposition and treatment plan as described except to the extent set forth below.
[2017-02-23] MEDS ORDERED: Polyethylene Glycol 3350 255 GM POWDER PO ONE (14:37)
[2017-02-23] MEDS: Pantoprazole 40 MG VIAL IVP SCH (17:06)
[2017-02-24] MEDS: *HR* Enoxaparin 40 MG/0.4 ML SYRINGE SQ SCH (05:05)
[2017-02-24] MEDS: *HR* HYDROmorphone (PF) 1 MG/ML SYRINGE IVP PRN ×3 (05:05→14:30)
[2017-02-24] MEDS: Pantoprazole 40 MG VIAL IVP SCH (09:37)
[2017-02-24] MEDS: *HR* OxyCODONE Immed Rel 5 MG TABLET PO PRN ×4 (11:26→23:51)
[2017-02-24] MEDS: Ondansetron 4 MG/2 ML VIAL IVP PRN ×2 (11:29→23:51)
--- NOTE | 2017-02-24 11:31 | Internal Med Progress Note ---
Date of Encounter: 02/24/17 Time of Encounter: 09:00 - Assessment and plan (1) Prostatitis Current Visit: Yes Status: Suspected Assessment and plan: Patient was diagnosed with prostatitis in ED during previous visit. On rectal exam in the ED, patient had an enlarged prostate with tenderness. Abdominal pelvic CT showed no prostatic abnormalities. Serology was performed for chlamydia and gonorrhea. Results on 02/21/17: Not detected. Bladder ultrasound was performed on 03/07: Demonstrated no significant postvoid residual. PSA has been ordered. Plan: Pain control as follows: -Acetaminophen 650 PO every 6 hours PRN (mild) -Oxycodone ER 20 mg BID (moderate) -Ciprofloxacin 400 mg IV Q12 started on 02/20/17; day 5 of antibiotics. Qualifiers: Prostatitis type: acute Qualified Code(s): N41.0 - Acute prostatitis (2) GI bleed Current Visit: Yes Status: Acute Assessment and plan: Patient reports having a bowel movement tinged with blood 2 days ago. Also had 2 episodes of vomiting in which he observed streaks of blood. Diffuse abdominal pain present on physical exam. Plan: -Continue to monitor patient's hemoglobin levels. -Upper and lower endoscopy performed today. Qualifiers: GI bleed type/associated pathology: unspecified gastrointestinal hemorrhage type Qualified Code(s): K92.2 - Gastrointestinal hemorrhage, unspecified (3) Nausea & vomiting Current Visit: Yes Status: Resolved Assessment and plan: Patient reported feeling very nauseous this morning. Had 2 episodes of vomiting last night. Plan: -Zofran 4mg IV Q8 PRN. -Phenergan 12.5 mg PO Q6 PRN. Qualifiers: Qualified Code(s): R11.2 - Nausea with vomiting, unspecified (4) Sepsis Current Visit: Yes Status: Resolved Assessment and plan: Patient met septic criteria on admission: -Elevated lactic acid at 5.1, leukocytosis at 25.8. Tachycardia at 103 bpm, known source of infection. -Since admission, patient's white count has decreased from 25.8 June 23. -Blood cultures have been negative. -Sepsis has resolved. Qualifiers: Sepsis type: sepsis due to unspecified organism Qualified Code(s): A41.9 - Sepsis, unspecified organism - Subjective Interval history: Patient was seen and examined at bedside this morning. Patient states that he is still feeling diffuse abdominal pain and nausea. He denies having any episodes of vomiting or blood tinged bowel movement. Patient is scheduled for EGD and colonoscopy later today. - Constitutional Vitals: Temp Pulse Resp BP Pulse Ox 97.6 F 58 18 93/56 96 02/24/17 11:23 02/24/17 11:23 02/24/17 11:23 02/24/17 11:23 02/24/17 11:23 General appearance: Present: mild distress, A&O X 3, answers questions appropriately - Head Head exam: Present: atraumatic, normocephalic - Eye Eye exam: Present: PERRL, conjuntiva pink, sclera anicteric Pupils: Present: PERRL - Neck Neck exam general surgery: Present: supple, trachea midline. Absent: lymphadenopathy - Respiratory Respiratory exam: Present: CTAB. Absent: accessory muscle use, rales, rhonchi, wheezes - Cardiovascular Cardiovascular exam: Present: RRR, +S1, +S2. Absent: diastolic murmur, gallop, rubs, systolic murmur - GI/Abdominal GI/Abdominal exam: Present: tenderness - Extremities Exam Extremities exam: Present: warm, radial pulses palpable and symmetrical. Absent : calf tenderness, cyanotic, pedal edema - Skin Skin exam: Present: dry, intact Internal Medicine: Result - Labs CBC & Chem 7: 02/23/17 05:54 02/23/17 05:54 Consult Discharge Plan - Plan Referrals: ju elliott [Other] - 03/16/17 10:00 am NONE,PCP [Primary Care Provider] -
[2017-02-24] MEDS ORDERED: 0.9 % Sodium Chloride 1,000 ML IVC SCH (13:00)
--- NOTE | 2017-02-24 13:13 | Anesthesia Evaluation PreOp ---
Date of Encounter: 02/24/17 Time of Encounter: 13:11 - Past History Planned Operation: egd/cscope Cardiac History: Denies any Significant Hx Pulmonary History: Smoker (5 cigs /day), Pack/yr (10) THERMAL MOLDER History: Denies Any Significant HX Other Medical History: GERD Anesthesia History: No Prior Anesthetic Complications Alcohol Use: rarely (heavy 1 year previous) Drug use: marijuana (x2 mo) Medications and Allergies Omeprazole [PriLOSEC] PO DAILY 02/20/17 [History] 3 Allergy/AdvReac Type Severity Reaction Status Date / Time codeine Allergy Itching Verified 02/20/17 17:23 - Meds/Allergy Pre-op Review Medications Reviewed: Yes Allergies Reviewed: Yes Beta Blockers on Current Med List: No Anesthesia Results - Labs 02/23/17 05:54 02/23/17 05:54 Anesthesia Exam Vital Signs/O2 Sat, Most Current Temp Pulse Resp BP Pulse Ox 98.4 F 69 18 131/87 96 02/24/17 12:42 02/24/17 12:42 02/24/17 12:42 02/24/17 12:42 02/24/17 12:42 Height: 6'2" Weight: 190 NPO (# of Hours): 8 Pain Scale: 0 Pain Scale Used: Numeric (1 - 10) - HEENT Pupil (Motor): Pupils equal Mallampati: II Teeth: Normal Oral Opening: Greater than 3 - THERMAL MOLDER LOC: Oriented THERMAL MOLDER Motor: Normal RUE, Normal LUE, Normal RLE, Normal LLE, Normal Face THERMAL MOLDER Sensory: Normal: RUE, LUE, RLE, LLE, Face - Cardiac Rhythm: Regular Murmur: None - Pulmonary Breath Sounds: bilateral Clear Respiratory Effort: Symmetrical Anesthesia Assess/Plan ASA Score: 2 Modified Jyothi Scale for Level of Consciousness: Cooperative, oriented, and tranquil Anesthetic Plan: MAC Autologous Blood: No Monitoring Plan: Standard Monitors Recovery Plan: Other (risks discussed, questions answered, consented)
[2017-02-24] MEDS ORDERED: Propofol 500 MG/50 ML INFUS..BTL ONE (13:19)
[2017-02-24] MEDS ORDERED: *HR* Propofol 200 MG/20 ML VIAL IVP ONE (13:28)
[2017-02-24] MEDS ORDERED: *HR* OxyCODONE ER (12 HR) 20 MG TABLET PO SCH (18:00)
[2017-02-25] MEDS ORDERED: Melatonin 3 MG TABLET PO PRN (00:32)
[2017-02-25] MEDS: *HR* Enoxaparin 40 MG/0.4 ML SYRINGE SQ SCH (05:30)
[2017-02-25 05:56] LABS: Basophils # 0.1 K/mcL (0.0-0.2); Basophils % 1.3 %; Eosinophils # 0.3 K/mcL (0.0-0.6); Eosinophils % 3.4 %; Hematocrit 41.8 % (37.5-50.1); Hemoglobin 14.7 g/dL (12.9-16.9); Immature Granulocytes % 0.6 % (0-4); Lymphocytes # 2.3 K/mcL (0.6-4.6); Lymphocytes % 28.7 %; Mean Corpuscular HGB Conc 35.2 g/dL (31.6-35.5); Mean Corpuscular Hemoglobin 31.5 pg (28.0-33.3); Mean Corpuscular Volume 89.7 fL (83.0-100.0); Mean Platelet Volume 8.6 fL (9.4-12.4); Monocytes # 0.8 K/mcL (0.0-1.3); Monocytes % 9.6 %; Neutrophils # 4.5 K/mcL (1.6-8.9); Platelet Count 224 K/mcL (140-400); Red Blood Count 4.66 M/mcL (4.19-5.50); Red Cell Distribution Width 12.5 % (11.5-14.5); Segmented Neutrophils % 56.4 %
[2017-02-25 06:15] LABS: BUN/Creatinine Ratio 13 (6-26); Blood Urea Nitrogen 13 mg/dL (8-26); Calcium 9.2 mg/dL (8.6-10.8); Carbon Dioxide 25 mEq/L (19-29); Chloride 102 mEq/L (98-109); Glucose 114 mg/dL (70-99); Osmolality,Calculated 289 (280-300); Potassium 4.1 mEq/L (3.5-4.5); Sodium 139 mEq/L (136-145); eGFR For African Americans > 60 (> 60); eGFR For Non-African Americans > 60 (> 60)
--- NOTE | 2017-02-25 08:56 | Internal Med Progress Note ---
<Dawood Tillman - Last Filed: 02/25/17 13:50> Date of Encounter: 02/25/17 Time of Encounter: 08:00 - Assessment and plan (1) Prostatitis Status: Suspected Assessment and plan: Patient was diagnosed with prostatitis in ED during previous visit. On rectal exam in the ED, patient had an enlarged prostate with tenderness. Abdominal pelvic CT showed no prostatic abnormalities. Serology was performed for chlamydia and gonorrhea. Results on 02/21/17: Not detected. Bladder ultrasound was performed on 03/07: Demonstrated no significant postvoid residual. PSA has been ordered. Plan: Pain control as follows: -Patient switched to Roxicodone every 3 hours; IV hydromorphone was discontinued. Pain is now better controlled. -Ciprofloxacin 400 mg IV Q12 started on 02/20/17; day 6 of antibiotics. Qualifiers: Prostatitis type: acute Qualified Code(s): N41.0 - Acute prostatitis (2) GI bleed Status: Acute Assessment and plan: Upper and lower endoscopy was performed yesterday. Hiatal hernia, hemorrhoids, and polyp found in the colon. Patient will be seen later today by GI; would appreciate recommendations. Plan: -Continue to monitor patient's hemoglobin levels. Qualifiers: GI bleed type/associated pathology: unspecified gastrointestinal hemorrhage type Qualified Code(s): K92.2 - Gastrointestinal hemorrhage, unspecified (3) Nausea & vomiting Status: Resolved Assessment and plan: Patient has had persistent nausea throughout his visit. He states that his nausea has improved this morning. He has had no episodes of vomiting. Plan: -Zofran 4mg IV Q8 PRN. -Phenergan 12.5 mg PO Q6 PRN. Qualifiers: Qualified Code(s): R11.2 - Nausea with vomiting, unspecified (4) Sepsis Status: Resolved Assessment and plan: Patient met septic criteria on admission: -Elevated lactic acid at 5.1, leukocytosis at 25.8. Tachycardia at 103 bpm, known source of infection. -Since admission, patient's white count has decreased from 25.8 June 23. -Blood cultures have been negative. -Sepsis has resolved. Qualifiers: Sepsis type: sepsis due to unspecified organism Qualified Code(s): A41.9 - Sepsis, unspecified organism - Subjective Interval history: Patient was seen and examined at bedside this morning. Patient reports feeling better today. Patient denies having any episodes of bloody bowel movement or vomiting. Pain is better controlled after switching his frequency of Roxicodone to every 3 hours. Patient will be seen later today by GI for further recommendations. - Constitutional Vitals: Temp Pulse Resp BP Pulse Ox 97.8 F 69 17 95/46 97 02/25/17 07:20 02/25/17 07:20 02/25/17 07:20 02/25/17 07:20 02/25/17 07:20 General appearance: Present: A&O X 3, answers questions appropriately - Head Head exam: Present: atraumatic, normocephalic - Eye Eye exam: Present: PERRL, conjuntiva pink, sclera anicteric Pupils: Present: PERRL - Neck Neck exam general surgery: Present: supple, trachea midline. Absent: lymphadenopathy - Respiratory Respiratory exam: Present: CTAB. Absent: accessory muscle use, rales, rhonchi, wheezes - Cardiovascular Cardiovascular exam: Present: RRR, +S1, +S2. Absent: diastolic murmur, gallop, rubs, systolic murmur - GI/Abdominal GI/Abdominal exam: Present: tenderness Additional comments: Mild tenderness present; not reproduced by palpation. - Extremities Exam Extremities exam: Present: warm, radial pulses palpable and symmetrical. Absent : calf tenderness, cyanotic, pedal edema - Skin Skin exam: Present: dry, intact Internal Medicine: Result - Labs CBC & Chem 7: 02/25/17 05:35 02/25/17 05:35 Labs: Short CBC 02/25/17 Range/Units 05:35 WBC 8.0 (4.3-11.1) K/mcL Hgb 14.7 (12.9-16.9) g/dL Hct 41.8 (37.5-50.1) % Plt Count 224 (140-400) K/mcL Neutrophils # 4.5 (1.6-8.9) K/mcL BMP 02/25/17 05:35 Sodium 139 Potassium 4.1 Chloride 102 Carbon Dioxide 25 BUN 13 Creatinine 1.03 Glucose 114 H Calcium 9.2 Consult Discharge Plan - Plan Referrals: ju elliott [Other] - 03/16/17 10:00 am [facility] [Outside] - 03/05/17 3:00 pm Prescriptions: OxyCODONE Immed Rel [Roxicodone 5 MG] 5 mg PO Q8HR PRN #15 tablet PRN Reason: Pain Ciprofloxacin [Cipro] 500 mg PO BID 4 Days #8 tablet <David Snyder - Last Filed: 02/25/17 19:02> Date of Encounter: 02/25/17 - Constitutional Vitals: Temp Pulse Resp BP Pulse Ox 97.7 F 58 17 128/70 97 02/25/17 11:23 02/25/17 11:23 02/25/17 11:23 02/25/17 11:23 02/25/17 11:23 Internal Medicine: Result - Labs CBC & Chem 7: 02/25/17 05:35 02/25/17 05:35 Labs: Short CBC 02/25/17 Range/Units 05:35 WBC 8.0 (4.3-11.1) K/mcL Hgb 14.7 (12.9-16.9) g/dL Hct 41.8 (37.5-50.1) % Plt Count 224 (140-400) K/mcL Neutrophils # 4.5 (1.6-8.9) K/mcL BMP 02/25/17 05:35 Sodium 139 Potassium 4.1 Chloride 102 Carbon Dioxide 25 BUN 13 Creatinine 1.03 Glucose 114 H Calcium 9.2 - Attending Attestation I conducted a face to face diagnostic evaluation of this patient and my medical decision-making was reviewed with the Resident Physician, Dr. Dawood Tillman. I agree with the documented findings, disposition and treatment plan as described except to the extent set forth below: Patient is medically stable for discharge home. Please see discharge summary.
[2017-02-25 11:25] VITALS: BP 128/70
[2017-02-25] MEDS: Pantoprazole 40 MG VIAL IVP SCH (11:27)
[2017-02-25] MEDS: Ondansetron 4 MG/2 ML VIAL IVP PRN (12:27)
[2017-02-25] MEDS: *HR* OxyCODONE Immed Rel 5 MG TABLET PO PRN (12:28)
--- NOTE | 2017-02-25 13:54 | Discharge Summary ---
<Dawood Tillman - Last Filed: 02/25/17 15:29> Date of Encounter: 02/25/17 Time of Encounter: 08:00 - Discharge Diagnosis (1) Prostatitis Priority: Primary Status: Suspected Qualifiers: Prostatitis type: acute Qualified Code(s): N41.0 - Acute prostatitis (2) GI bleed Priority: Secondary Status: Acute Qualifiers: GI bleed type/associated pathology: unspecified gastrointestinal hemorrhage type Qualified Code(s): K92.2 - Gastrointestinal hemorrhage, unspecified (3) Nausea & vomiting Priority: Secondary Status: Resolved Qualifiers: Qualified Code(s): R11.2 - Nausea with vomiting, unspecified (4) Sepsis Priority: Secondary Status: Resolved Qualifiers: Sepsis type: sepsis due to unspecified organism Qualified Code(s): A41.9 - Sepsis, unspecified organism - Discharge Medications Prescriptions: OxyCODONE Immed Rel [Roxicodone 5 MG] 5 mg PO Q8HR PRN #15 tablet PRN Reason: Pain Ciprofloxacin [Cipro] 500 mg PO BID 4 Days #8 tablet Home Medications: Omeprazole [PriLOSEC] PO DAILY 02/20/17 [History] Ciprofloxacin [Cipro] 500 mg PO BID 4 Days #8 tablet 02/25/17 [Rx] OxyCODONE Immed Rel [Roxicodone 5 MG] 5 mg PO Q8HR PRN #15 tablet 02/25/17 [Rx] Allergies/Adverse Reactions: 3 Allergy/AdvReac Type Severity Reaction Status Date / Time codeine Allergy Itching Verified 02/20/17 17:23 Procedures/tests Complete & Pending: Procedures Performed prior 72 hours Category Date Time Status US bladder/limited pelvis [US] Routine Exams 02/22/17 15:00 Completed Date of admission: 02/20/17 20:06 Primary care physician: PCP NONE Consults: 02/23/17 10:50 Consult to Gastroenterology [CONS] Routine Consulting Provider: Nely Durham Reason for Consult: Patient has diffuse abdominal pain, intermittent vomitting, and blood in his stool and vomit Call Completed: No Discharging clinician: Dawood Tillman Anticipated date of discharge: 02/25/17 - Patient Status Disposition: Home, Self-Care Condition: Good Overall status at discharge: patient is progressing back to baseline - Discharge Instructions Follow Up With: marva elliott [Other] - 03/16/17 10:00 am [facility] [Outside] - 03/05/17 3:00 pm - Diet and Activity Activity: increase activity as tolerated Diet: advance to your usual diet Hospital course: Mr. Polo is a 32 year old male Patient is a 32-year-old male who presented initially to the hospital on with a chief complaint of abdominal pain. He also had decreased appetite, fatigue, nausea, and vomiting. He also had bleeding per rectum and loly-rectal pain. He complained of an unintentional 30 pound weight loss. At this visit, he had an elevated white count of 12.1. Imaging studies were negative. Remainder of his workup was negative. He was sent home on antibiotics and was told to follow-up in the outpatient setting. He presented again on 02/15/17. He had similar complaints. Physical exam at this time demonstrated an enlarged prostate with some tenderness. He was given ciprofloxacin 10 days. After this discharge, he presented again on 02/20/17 with nausea and vomiting of several days' duration. Patient reported that he did not fill his previous prescription of ciprofloxacin. Patient notes that there was some blood present in the bucket that he was vomiting into. Upon presentation to the hospital, patient met septic criteria. He had an elevated lactic acid of 5.1, leukocytosis of 25.8, tachycardia at 103, and a known source of infection with the previous diagnosis of prostatitis. Patient also had some right CVA tenderness. Initial concerns were that of pyelonephritis. Patient was started on IV ciprofloxacin. Patient's urinalysis was performed, and it was negative for blood, white blood cells, and urine bacteria. No culture was indicated. Chest x-ray showed no acute process. Abdominal and pelvic CT scan was performed. It demonstrated no acute abnormality in the abdomen or pelvis; diffuse hepatic steatosis. Blood cultures were ordered, which were negative. Urine gonococcal and chlamydial antigens were ordered, which were also negative. Bladder ultrasound was performed on 02/22/17. It demonstrated no significant postvoid residual. Since patient's admission, his white count has been trending down. Initial white count was 25.8. Patient's white count this morning was 8.0. Lactic acid has decreased to 1.0. Chlamydia and gonorrhea serology was performed. DNA not detected. Upper and lower endoscopy was performed 02/24/17. Demonstrated the presence of a hiatal hernia, polyp in the colon, and the presence of hemorrhoids. Patient was seen and examined at bedside this morning. Patient has no complaints today. He states that his abdominal pain has since subsided. Patient should follow up with GI in the outpatient setting in a couple of weeks. Ciprofloxacin 500 mg BID for 4 more days. - Time Spent with Patient Total time spent providing and/or coordinating discharge services: Greater than 30 minutes (41 minutes) - Constitutional Vitals: Temp Pulse Resp BP Pulse Ox 97.7 F 58 17 128/70 97 02/25/17 11:23 02/25/17 11:23 02/25/17 11:23 02/25/17 11:23 02/25/17 11:23 General appearance: Present: A&O X 3, answers questions appropriately - Head Head exam: Present: atraumatic, normocephalic - Eye Eye exam: Present: PERRL, conjuntiva pink, sclera anicteric Pupils: Present: PERRL - Neck Neck exam general surgery: Present: supple, trachea midline. Absent: lymphadenopathy - Respiratory Respiratory exam: Present: CTAB. Absent: accessory muscle use, rales, rhonchi, wheezes - Cardiovascular Cardiovascular exam: Present: RRR, +S1, +S2. Absent: diastolic murmur, gallop, rubs, systolic murmur - GI/Abdominal GI/Abdominal exam: Present: normal bowel sounds, soft, tenderness - Extremities Exam Extremities exam: Present: warm, radial pulses palpable and symmetrical. Absent : calf tenderness, cyanotic, pedal edema - Skin Skin exam: Present: dry, intact <David Snyder - Last Filed: 02/25/17 19:24> Date of Encounter: 02/25/17 Date of admission: 02/20/17 20:06 Primary care physician: PCP NONE Consults: 02/23/17 10:50 Consult to Gastroenterology [CONS] Routine Consulting Provider: Gastroenterology Marva Reason for Consult: Patient has diffuse abdominal pain, intermittent vomitting, and blood in his stool and vomit Call Completed: No Hospital course: Mr. Polo is a 32 year old male - Time Spent with Patient Total time spent providing and/or coordinating discharge services: - Constitutional Vitals: Temp Pulse Resp BP Pulse Ox 97.7 F 58 17 128/70 97 02/25/17 11:23 02/25/17 11:23 02/25/17 11:23 02/25/17 11:23 02/25/17 11:23 - Attending Attestation I conducted a face to face diagnostic evaluation of this patient and my medical decision-making was reviewed with the Resident Physician, Dr Dawood Tillman. I agree with the documented findings, disposition and treatment plan as described except to the extent set forth below: Patient reports cramping abdominal pain. His colonoscopy was negative. He had a polyp removed and pathology is pending. The patient should have a follow-up arranged with director of accounting for follow- up on colonoscopy findings and workup his chronic abdominal pain. I expressed this to the patient and he verbalizes understanding and agreement.
== END 2017-02-25 15:39 | disposition home or self-care (01) | DRG 720 ==
LOC: EMEROO 14:03 → 2ANU 14:03 → SUATTDRO 20:06
PROVIDERS: ADMIT Hospitalist; ATTEND Internal Medicine
PROC: ENDOEBX (2017-02-24 14:00)